=== PATIENT | male | born 1970 | race Caucasian/White ===

== ENCOUNTER 2025-04-23 02:37 | Emergency (ER) | payer OTHER ==
[~2025-04-23] VITALS: Ht 193 cm; Wt 131.5 kg
[2025-04-23 02:37] VITALS: PULSE 97; RESP 20; TEMP 98
[~2025-04-23 02:37] MED LIST: MEDROL4 M2 PO
[2025-04-23] MEDS ORDERED: DIPHENHYDRAMINE HCL 25 MG CAP ONE (02:41)
[2025-04-23] MEDS: DIPHENHYDRAMINE HCL 25 MG CAP PO ONE (02:45)
[2025-04-23] MEDS: METHYLPREDNISOLONE SOD SUCC 125 MG/2ML VIAL IM ONE (02:51)
[2025-04-23] MEDS: FAMOTIDINE 20 MG TAB PO ONE (02:51)
[2025-04-23 04:42] VITALS: BP 155/84; O2SAT 98
== END 2025-04-23 04:25 | disposition home or self-care (01) ==
LOC: ER 02:42
DX: L53.9 Erythematous condition, unspecified (principal); L29.9 Pruritus, unspecified; T78.40XA Allergy, unspecified, initial encounter; I10 Essential (primary) hypertension; E11.9 Type 2 diabetes mellitus without complications; I48.91 Unspecified atrial fibrillation; Z85.118 Personal history of other malignant neoplasm of bronchus and lung
CPT/HCPCS: 99283; J2919